=== PATIENT | male | born 1930 | race Caucasian/White ===

== ENCOUNTER 2018-12-13 19:44 | Inpatient (IN) | payer MEDICARE, OTHER ==
[~2018-12-13] VITALS: Ht 170.2 cm; Wt 61.4 kg
[2018-12-13 19:50] VITALS: Ht 170.2 cm; Wt 61.4 kg
--- NOTE | 2018-12-13 19:57 | ERD ---
ER Documentation Chief Complaint Chief Complaint BIB RA89 from [facility],SOB,mhxCHF,CVA w/ L side deficit,HTN HPI 88-year-old male history of hypertension, chronic ischemic heart disease, CHF, COPD, hypoxic respiratory failure, CVA with hemiparesis, encephalopathy, GERD and cholelithiasis presents to the ED via rescue ambulance from [facility] for evaluation of acute onset of shortness of breath this evening. No documented vomiting, change in mental status or fever. Patient is unable to provide any history due to cognitive impairment and clinical condition. Limited history is obtained from paramedics and transfer records. ROS Unobtainable except as per HPI due to the patient's cognitive impairment Medications Home Meds Reported Medications Tuberculin,Purif.prot.deriv. (Tubersol) 5 Tub Unit/0.1 Ml Vial, 5 TUB ID ONCE for ANNUAL PPD TEST, VIAL FOR 1 DAY 12/13/18 Lisinopril* (Zestril*) 5 Mg Tablet, 5 MG PO DAILY, #30 TAB HOLD FOR SBP<110 12/13/18 Acetaminophen* (Tylenol*) 325 Mg Tablet, 650 MG PO Q6H PRN for MILD PAIN LEVEL 1-3, TAB AND FOR FEVER>101.0F 12/13/18 Metoprolol Succinate* (Toprol XL*) 25 Mg Tab.sr.24h, 25 MG PO DAILY, #30 TAB HOLD FOR SBP<110 OR HR<60 12/13/18 Sennosides* (Senokot*) 8.6 Mg Tablet, 1 TAB PO BID, TAB 12/13/18 Clopidogrel Bisulfate* (Clopidogrel Bisulfate*) 75 Mg Tablet, 75 MG PO DAILY, #3 0 TAB 12/13/18 Ondansetron Hcl* (Zofran*) 4 Mg Tab, 4 MG PO Q6H PRN for NAUSEA AND OR VOMITING, TAB 12/13/18 Multivit-Min/Iron Fum/Folic AC (Kgvjw-Sptfpjs-Hedaxadi Tablet) 1 Each Tablet, 1 EACH PO DAILY, TAB 12/13/18 Polyethylene Glycol* (Miralax*) 17 Gm Powd.pack, 17 GM PO NEEDED, #30 PACKET 12/13/18 Furosemide* (Furosemide*) 20 Mg Tablet, 20 MG PO BID, #30 TAB 12/13/18 Ipratropium-Albuterol (Ipratropium-Albuterol) 0.5-3 Mg/3 Ml Ampul.neb, 3 ML INHALATION Q4H PRN for NEEDED, #30 VIAL 12/13/18 Bisacodyl* (Bisacodyl*) 10 Mg Supp, 10 MG NM Q24H PRN for NEEDED, SUPP 12/13/18 Donepezil* (Aricept*) 5 Mg Tablet, 5 MG PO QHS, TAB 12/13/18 Albuterol Sulfate* (Albuterol Sulfate* Neb) 0.083%-3 Ml Neb, 2.5 MG NEB Q4H WHILE AWAKE PRN for WHEEZING AND SOB, #30 VIAL 12/13/18 Allergies Allergies: Coded Allergies: No Known Allergy (Unverified , 12/13/18) PMhx/Soc Reviewed in chart. As per HPI. Full code as per POLST Hx Neurological Disorder: Yes (CVA) Hx Respiratory Disorders: Yes (COPD) Hx Cardiac Disorders: Yes (CAD, CHF) Hx Psychiatric Problems: No Hx Miscellaneous Medical Probl: Yes (GERD, cholelithiasis) Hx Alcohol Use: No Hx Substance Use: No Hx Tobacco Use: No FmHx Unknown Physical Exam Vitals Vital Signs Date Temp Pulse Resp B/P (MAP) Pulse Ox O2 O2 Flow FiO2 Time Delivery Rate 12/13/18 117 24 120/83 96 Nasal 3.0 22:00 (95) Cannula 12/13/18 120 97 45 21:49 12/13/18 127 97 45 20:10 12/13/18 99.9 125 33 153/119 98 BIPAP 20:05 (130) 12/13/18 98.0 127 26 143/88 97 19:50 (106) Physical Exam Const: Severe respiratory distress Head: Atraumatic Eyes: Normal Conjunctiva ENT: Normal External Ears, Nose and Mouth. Neck: Nontender. No meningismus. Resp: Markedly diminished bilaterally right greater than left with expiratory wheezing. Cardio: Tachycardic. Regular rate and rhythm, no murmurs Abd: Soft, non tender, non distended. Normal bowel sounds Skin: No petechiae or rashes Back: No midline or flank tenderness Ext: Contracted. No cyanosis, or edema Neur: Left hemiparesis. Uncooperative. Exam is limited due to the constraints imposed by the patient's cognitive impairment and clinical decision Result Diagram: 12/16/18 0627 12/16/18 0627 Results 24 hrs Laboratory Tests Test 12/13/18 19:58 12/13/18 20:09 12/13/18 20:11 12/13/18 21:56 Blood Gas Blood arterial Specimen Source Arterial Blood 12/13/2018 9:25:52 Date Drawn PM Arterial Blood pH 7.336 (Temp corrected) Arterial Blood 36.2 mmhg pCO2 (Temp correct) Arterial Blood 126.2 mmHG pO2 (Temp corrected) Arterial Blood 18.9 mmol/L HCO3 Arterial Blood -6.2 mmol/L Base Excess Arterial Blood 98.2 mmHG Oxygen Saturation [place] Test ACCEPTAB Arterial Blood Right Radial Gas Puncture Site Arterial 0.1 % Blood Carboxyhemo globin Arterial Blood 0.3 % Methemoglobin Blood Gas A-a O2 153.5 mmHg Differential Oxyhemoglobin 97.8 % Percent Blood Gas 37.0 C Temperature Blood Gas 16.0 Respiration Rate Blood Gas Actual 26 Respiration Rate Blood Gas MASK - BIPAP Modality FiO2 45.0 % Blood Gas 10 Pressure Support Blood Gas 15/5 IPAP/EPAP Ratio Blood Gas UP Notified Whom Blood Gas 12/13/2018 9:40:43 Notified Time PM POC Venous 2.6 mmol/L 2.6 mmol/L Lactate White Blood Count 7.1 10^3/ul Red Blood Count 4.70 10^6/ul Hemoglobin 13.4 g/dl Hematocrit 41.6 % Mean Corpuscular 88.5 fl Volume Mean Corpuscular 28.5 pg Hemoglobin Mean Corpuscular 32.2 g/dl Hemoglobin Concen t Red Cell 16.0 % Distribution Width Platelet Count 310 10^3/UL Mean Platelet 10.3 fl Volume Immature 0.300 % Granulocytes % Neutrophils % 45.2 % Lymphocytes % 44.2 % Monocytes % 6.5 % Eosinophils % 3.0 % Basophils % 0.8 % Nucleated Red 0.0 /100WBC Blood Cells % Immature 0.020 10^3/ul Granulocytes # Neutrophils # 3.2 10^3/ul Lymphocytes # 3.1 10^3/ul Monocytes # 0.5 10^3/ul Eosinophils # 0.2 10^3/ul Basophils # 0.1 10^3/ul Nucleated Red 0.0 10^3/ul Blood Cells # Prothrombin Time 14.5 Sec Prothrombin Time 1.1 Ratio INR International 1.12 Normalized Ratio Activated 38.6 Sec Partial Thrombopl ast Time Sodium Level 137 mmol/L Potassium Level 4.8 mmol/L Chloride Level 102 mmol/L Carbon Dioxide 21 mmol/L Level Anion Gap 14 Blood Urea 18 mg/dl Nitrogen Creatinine 0.85 mg/dl Est Glomerular mL/min Filtrat Rate mL/min Glucose Level 210 mg/dl Calcium Level 8.8 mg/dl Total Bilirubin 0.3 mg/dl Direct Bilirubin 0.00 mg/dl Indirect 0.3 mg/dl Bilirubin Aspartate Amino 37 IU/L Transf (AST/SGOT) Alanine 17 IU/L Aminotransferase (ALT/SGPT) Alkaline 99 IU/L Phosphatase Troponin I < 0.012 ng/ml Total Protein 8.2 g/dl Albumin 3.8 g/dl Globulin 4.40 g/dl Albumin/Globulin 0.86 Ratio Current Medications Medications Dose Sig/West Start Time Status Last (Trade) Ordered Route PRN Stop Time Admin Dose Reason Admin Albuterol 15 mg ONCE STAT 12/13/18 DC 12/13/18 (Proventil INH 19:58 12/13/18 20:44 0.5% (Neb)) 20:08 Ipratropium 1 mg ONCE STAT 12/13/18 DC 12/13/18 [place] INH 19:58 12/13/18 20:43 (Atrovent 20:08 0.02% (Neb)) 125 mg ONCE STAT 12/13/18 DC 12/13/18 Methylprednis IV 19:58 12/13/18 20:16 olone Sodium 20:08 Succinate (Solu-Medrol) Sodium 1,840 ml BOLUS OVER 2 12/13/18 DC 12/13/18 Chloride HOURS STAT 19:58 12/13/18 20:17 (NS) IV* 20:08 Vancomycin 250 ml @ ONCE STAT 12/13/18 DC 12/13/18 HCl 125 mls/hr IVPB 19:58 12/13/18 20:48 21:57 Cefepime HCl 50 ml @ ONCE STAT 12/13/18 DC 12/13/18 100 mls/hr IVPB 19:58 12/13/18 20:17 20:27 7 mg ONCE ONCE 12/13/18 DC 12/13/18 Levalbuterol HHN 22:30 12/13/18 23:00 (Xopenex 22:54 Neb) 30 mg Q8 IV 12/13/18 DC Methylprednis 22:30 12/13/18 olone Sodium 22:42 Succinate (Solu-Medrol) Procedures/MDM DOCUMENTS REVIEWED: ED nurse, SNF records and EMS report. EKG: Time: 2019. Sinus tachycardia. Ventricular rate 118. Normal NM int erval. Widened QRS with left bundle branch block. No acute ST elevation or depression. My Interpretation IMAGING: PROCEDURE: XR Chest. CLINICAL INDICATION: Dyspnea TECHNIQUE: Single frontal chest x-ray. COMPARISON: None. FINDINGS: Moderate to large right and mild left pleural effusions. No pneumothorax. Mildly enlarged cardiac silhouette. Aortic atherosclerotic calcification is noted. The osseous structures are remarkable for degenerative enthesopathy of the spine. IMPRESSION: 1. Moderate to large right and mild left pleural effusions. 2. Mildly enlarged cardiac silhouette. Aortic atherosclerosis. RPTAT: HDWR .Dwain Padgett MD, MD Date Time Electronically viewed and signed by .Dwain Padgett MD, MD on 12/13/2018 20:57 .R/ [employer] DECISION MAKIN-year-old male history of hypertension, chronic ischemic heart disease, CHF, COPD, hypoxic respiratory failure, CVA with left hemiparesis, encephalopathy, GERD and cholelithiasis presents to the ED via rescue ambulance from [facility] for evaluation of acute onset of shortness of breath this evening. CBC unremarkable for leukocytosis or anemia. Chemistry reveals no evidence of renal insufficiency, electrolyte abnormalities or hyperglycemia. EKG reveals left bundle branch block and tachycardia but no criteria for ischemia. No prior ECGs available for comparison at this time. Troponin is negative. No evidence of STEMI/NSTEMI or acute ischemia however a cardiac etiology is not ruled out. Chest x-ray sig nificant for cardiomegaly, large right and small left pleural effusions but no acute infiltrate. Patient presents with acute respiratory failure secondary to COPD exacerbation and bilateral pleural effusions improved significantly with noninvasive positive pressure ventilation nebulized beta agonists, and intravenous corticosteroids. Pleural effusion of uncertain etiology although infectious and neoplastic etiologies are considered; will require thoracentesis. Serial lactates greater than 2.0 mmol/L consistent with severe sepsis. Intravenous fluids and broad-spectrum antibiotics administered prior to cultures. Patient's infectious and pulmonary symptoms have not stabilized and the patient is at risk of rapid decompensation. The patient will be admitted to telemetry for pulmonary care, thoracentesis, careful hydration, antibiotic therapy, infectious source control, further evaluation and management. Severe Sepsis criteria: Infectious source: Pulmonary End organ damage indicated by: Lactate > 2.0 mmol/L Sepsis Management: Time of recognition of severe sepsis: 20:09 Within 1 hours of recognition: Blood cultures x 2 before broad-spectrum antibiotics: Yes 30 ml/kg NS bolus completed Initial lactate 2.6 Repeat lactate 2.6 Septic Shock Assessment: Any lactic acid > 4.0 No Persistent hypotension (SBP < 90 or 40 mmHg drop, MAP < 65) despite 30 mL/kg IV fluid bolus No No Persistent Hypotension Treatment: Comfort care no Central line not indicated Accepting Care Team Current data and ongoing care discussed. Time: 22:35, . Admitting Physician: Dr. Yousif Critical Care Time: 35 minutes Treatments/Evaluations: Close monitoring and treatment of unstable vital signs, cardiorespiratory, and neurologic status, while maintaining tight balance of fluid, respiratory, and cardiac interventions. This includes noninvasive positive pressure ventilation and the administration of emergency fluid management while maintaining close respiratory support as well as the provision of immediate and broad-spectrum antibiotic therapy, while performing a simultaneous assessment for possible sources in order to direct targeted therapy. This time includes discussing the case with the patient and the patient's family. This time also includes the consideration for invasive and chemical support to prevent cardiopulmonary collapse. This time does not include all procedures stated elsewhere in this record. This time also includes reviewing old records, labs and radiological studies. This time includes examining and re-examining the patient. Additionally, this time also includes arranging care with admitting and consulting physicians. Departure Diagnosis: Primary Impression: Acute dyspnea Additional Impressions: Acute respiratory failure Respiratory failure complication: unspecified whether with hypoxia or hypercapnia Qualified Codes: J96.00 - Acute respiratory failure, unspecified whether with hypoxia or hypercapnia Severe sepsis COPD with acute exacerbation Pleural effusion Condition: Serious HIEN HILL MD Dec 13, 2018 19:57
[2018-12-13] MEDS ORDERED: VANCOMYCIN 1 GM (PMX) 250 ML IVPB STA (19:58)
[2018-12-13] MEDS ORDERED: METHYLPREDNISOLONE 125 MG INJ IV STA (19:58)
[2018-12-13] MEDS ORDERED: ALBUTEROL 0.5% (NEB) 2.5 MG/0.5 ML AMP INH STA (19:58)
[2018-12-13] MEDS ORDERED: SODIUM CHLORIDE 0.9% 1L BAG IV* STA (19:58)
[2018-12-13] MEDS ORDERED: IPRATROPIUM (NEB) 0.5 MG/2.5 ML AMP INH STA (19:58)
[2018-12-13] MEDS ORDERED: CEFEPIME 2GM/50 ML (PMX) 50 ML IVPB STA (19:58)
--- NOTE | 2018-12-13 22:06 | HP ---
Date/Time of Note Date/Time of Note DATE: 12/13/18 TIME: 21:51 Assessment/Plan VTE Prophylaxis SCD applied (from Nsg): Yes Pharmacological prophylaxis: NA/contraindicated Pharm contraindication: low risk/ambulating Lines/Catheters IV Catheter Type (from Nrsg): Saline Lock Assessment/Plan Hospital Course This is a 88-year-old male being admitted to the telemetry floor for: #1 acute respiratory failure: Secondary to underlying pleural effusion/COPD/CHF exacerbation/pneumonia. Currently on BiPAP. Steroids, nebulizers scheduled. #2 suspected severe sepsis: Possible underlying pneumonia check urinalysis. Broad-spectrum antibiotics at the current time. Trend lactic acid levels. #3 COPD: Steroids, nebulizers, antibiotics #4 bilateral pleural effusions: Right greater than left. Will obtain a CT of the chest to further evaluate, depending on findings patient may need thoracentesis for diagnostic and therapeutic purposes. #5 acute on chronic encephalopathy/dementia: We will need to corroborate patient's history with family. Continue donepezil #6 diastolic versus systolic CHF: We will obtain an echocardiogram. Continue ALLI inhibitor hold beta-roxanne respiratory symptoms and possible concurrent COPD exacerbation #7 CVA: With hemiplegia. Will hold Plavix at the current time as patient may undergo thoracentesis. #8 coronary artery disease: We will resume home meds as indicated, currently holding Plavix #9 chronic debility: Continue supportive care #10 CODE STATUS: Full code as per the POLST form. Will need family consent for procedure in the AM if thoracentesis needed. #11 DVT GI prophylaxis: SCDs, no GI prophylaxis indicated Further treatment strategy will be implemented as per the clinical course. We will need to get in touch with next of kin in the a.m. regarding patient's condition. Will also need to obtain consent for possible thoracentesis. Result Diagram: 12/13/18201012/13/182010 Results 24hrs Laboratory Tests Test 12/13/18 19:58 12/13/18 20:09 12/13/18 20:11 Blood Gas Specimen Source Blood arterial Arterial Blood Date Drawn 12/13/2018 9:25:52 PM Arterial Blood pH 7.336 L (Temp corrected) Arterial Blood pCO2 36.2 (Temp correct) Arterial Blood pO2 126.2 H (Temp corrected) Arterial Blood HCO3 18.9 L Arterial Blood Base Excess -6.2 L Arterial Blood 98.2 Oxygen Saturation [place] Test ACCEPTAB Arterial Blood Gas Right Radial Puncture Site Arterial 0.1 Blood Carboxyhemoglobin Arterial Blood Methemoglobin 0.3 Blood Gas A-a O2 Differential 153.5 H Oxyhemoglobin Percent 97.8 Blood Gas Temperature 37.0 Blood Gas Respiration Rate 16.0 Blood Gas Actual 26 Respiration Rate Blood Gas Modality MASK - BIPAP FiO2 45.0 Blood Gas Pressure Support 10 Blood Gas IPAP/EPAP Ratio 15/5 Blood Gas Notified Whom UP Blood Gas Notified Time 12/13/2018 9:40:43 PM POC Venous Lactate 2.6 *H White Blood Count 7.1 Red Blood Count 4.70 Hemoglobin 13.4 L Hematocrit 41.6 L Mean Corpuscular Volume 88.5 Mean Corpuscular Hemoglobin 28.5 L Mean Corpuscular 32.2 Hemoglobin Concent Red Cell Distribution Width 16.0 H Platelet Count 310 Mean Platelet Volume 10.3 Immature Granulocytes % 0.300 Neutrophils % 45.2 Lymphocytes % 44.2 Monocytes % 6.5 Eosinophils % 3.0 Basophils % 0.8 Nucleated Red Blood Cells % 0.0 Immature Granulocytes # 0.020 Neutrophils # 3.2 Lymphocytes # 3.1 H Monocytes # 0.5 Eosinophils # 0.2 Basophils # 0.1 Nucleated Red Blood Cells # 0.0 Prothrombin Time 14.5 Prothrombin Time Ratio 1.1 INR International 1.12 Normalized Ratio Activated Partial Thromboplast 38.6 H Time Sodium Level 137 Potassium Level 4.8 Chloride Level 102 Carbon Dioxide Level 21 Anion Gap 14 H Blood Urea Nitrogen 18 Creatinine 0.85 Est Glomerular Filtrat Rate mL/min Glucose Level 210 Calcium Level 8.8 Total Bilirubin 0.3 Direct Bilirubin 0.00 Indirect Bilirubin 0.3 Aspartate Amino 37 Transf (AST/SGOT) Alanine 17 Aminotransferase (ALT/SGPT) Alkaline Phosphatase 99 Troponin I < 0.012 Total Protein 8.2 H Albumin 3.8 Globulin 4.40 H Albumin/Globulin Ratio 0.86 HPI/ROS Admit Date/Time Admit Date/Time Hx of Present Illness Chief complaint: Brought in from care facility for shortness of breath dyspnea times 2 days Patient is a poor historian information was provided by the EMS and the ED physician. This is a 88-year-old male who was sent in today from his chronic care living facility for shortness of breath and dyspnea times 2 days. As per the EMS patient's shortness of breath became worse today. H when he arrived in the emergency department he was noted to be in moderate to severe respiratory distress, he did have bilateral coarse crackles on exam. Patient was placed on BiPAP with an O2 saturation of 98%. He was reported to have accessory muscle use and tripoding and he was tachycardic. Patient's rectal temperature was 99.9. Upon my examination the patient at the bedside patient was awake and alert, he was not able to provide much history that he was able to follow simple commands. Mild wheezing and coarse breath sounds bilaterally greater on the right. POLST form in the chart did show the patient is a full code Allergies: NKDA Medications: See MAR ROS Subjective hx not possible: other (Unable to obtain given patient's clinical condition, ) PMH/Family/Social Past Medical History COPD Dysphagia Gallstones Non-STEMI Encephalopathy Hypertension CAD CHF CVA resulting in hemiplegia GERD Contracture Chronic debility requiring assistance Medications Current Medications Vancomycin HCl 250 ml @ 125 mls/hr ONCE STAT IVPB Last administered on 12/13/18at 20:48; Admin Dose 125 MLS/HR; Start 12/13/18 at 19:58; Stop 12/13/18 at 21:57 Coded Allergies: No Known Allergy (Unverified , 12/13/18) Past Surgical History Unknown unable to obtain given patient's clinical condition Family History Significant Family History: other (nknown unable to obtain given patient's clinical condition) Social History nknown unable to obtain given patient's clinical condition Smoking Status: Unknown if ever smoked Exam/Review of Systems Vital Signs Vitals Vital Signs Date Temp Pulse Resp B/P (MAP) Pulse Ox O2 O2 Flow FiO2 Time Delivery Rate 12/13/18 120 97 45 21:49 12/13/18 99.9 33 153/119 BIPAP 20:05 (130) Exam Exam General: Patient currently lying in bed in mild to moderate respiratory distress HEENT: Atraumatic, normocephalic. The pupils are equal, round and reactive. Extraocular motor are intact Neck: Supple with full range of motion. No rigidity or meningismus Chest: Nontender Lungs: Coarse breath sounds bilaterally, wheezing greater on the right than the left, currently on BiPAP Heart: Sinus tachycardia Abdomen: Soft , nontender, nondistended , bowel sounds are present. No guarding no rebound tenderness , No masses or organomegaly. No costovertebral temporal angle mass Extremities: Normal to inspection, no edema no cyanosis Neurologic: Alert and awake, does possibly appear to be some underlying dementia and language barrier, patient though is able to follow commands. Additional Comments PROCEDURE: XR Chest. CLINICAL INDICATION: Dyspnea TECHNIQUE: Single frontal chest x-ray. COMPARISON: None. FINDINGS: Moderate to large right and mild left pleural effusions. No pneumothorax. Mildly enlarged cardiac silhouette. Aortic atherosclerotic calcification is noted. The osseous structures are remarkable for degenerative enthesopathy of the spine. IMPRESSION: 1. Moderate to large right and mild left pleural effusions. 2. Mildly enlarged cardiac silhouette. Aortic atherosclerosis. RPTAT: HDWR .Dwain Padgett MD, MD Date Time Electronically viewed and signed by .Dwain Padgett MD, MD on 12/13/2018 20:57 .R/ CC: HIEN HILL MD [id number] JAKE BARRERA Dec 13, 2018 22:02
[2018-12-13] MEDS ORDERED: ALBU2.5V3 NEB (22:18)
[2018-12-13] MEDS ORDERED: DONE5TAB46 PO (22:19)
[2018-12-13] MEDS ORDERED: BISA10SU75 PR (22:19)
[2018-12-13] MEDS ORDERED: IPRA3AMP29 INHALATION (22:20)
[2018-12-13] MEDS ORDERED: FURO20TA3 PO (22:21)
[2018-12-13] MEDS ORDERED: POLY17PO6 PO (22:21)
[2018-12-13] MEDS ORDERED: MULT-876 PO (22:22)
[2018-12-13] MEDS ORDERED: ONDA4TAB13 PO (22:23)
[2018-12-13] MEDS ORDERED: CLOP75TA19 PO (22:24)
[2018-12-13] MEDS ORDERED: SENN-36 PO (22:25)
[2018-12-13] MEDS ORDERED: METO-335 PO (22:26)
[2018-12-13] MEDS ORDERED: ACET325T33 PO (22:29)
[2018-12-13] MEDS ORDERED: LISI-523 PO (22:30)
[2018-12-13] MEDS ORDERED: METHYLPREDNISOLONE 40 MG INJ IV SCH (22:30)
[2018-12-13] MEDS ORDERED: LEVALBUTEROL (NEB) 1.25 MG/0.5 ML AMP HHN ONE (22:30)
[2018-12-13] MEDS ORDERED: TUBE5VIA3 ID (22:33)
[2018-12-13] MEDS ORDERED: NACL 0.9% 3 ML SYG IV SCH (23:00)
[2018-12-13] MEDS ORDERED: ONDANSETRON 4 MG INJ IV PRN (23:00)
[2018-12-13] MEDS ORDERED: FUROSEMIDE 20 MG INJ IV ONE (23:00)
[2018-12-13] MEDS ORDERED: VANCOMYCIN IV PER PHARMACY XX SCH (23:00)
[2018-12-13] MEDS ORDERED: DOCUSATE SODIUM 100 MG CAP PO PRN (23:00)
[2018-12-13] MEDS ORDERED: ACETAMINOPHEN 325 MG TAB PO PRN (23:00)
[2018-12-13] MEDS: METHYLPREDNISOLONE 40 MG INJ IV SCH (23:56)
[2018-12-13] MEDS: PIPER-TAZO 3.375 GM IV (PMX) 100 ML IVPB SCH (23:56)
[2018-12-14] VITALS (11 sets, daily range): BP systolic 105–130; BP diastolic 56–80; PULSE 98–109; RESP 18–21
[2018-12-14] MEDS: LEVALBUTEROL (NEB) 1.25 MG/0.5 ML AMP HHN SCH ×6 (01:53→20:07)
[2018-12-14] MEDS: IPRATROPIUM (NEB) 0.5 MG/2.5 ML AMP HHN SCH ×6 (01:53→20:07)
[2018-12-14] MEDS: METHYLPREDNISOLONE 40 MG INJ IV SCH ×3 (05:33→22:22)
[2018-12-14] MEDS: PIPER-TAZO 3.375 GM IV (PMX) 100 ML IVPB SCH ×3 (05:33→17:36)
--- NOTE | 2018-12-14 08:42 | CONS ---
Assessment/Plan Assessment/Plan Assessment/Plan (Daily) Chest x-ray showing right pleural effusion, CT chest is showing partially loculated right pleural effusion which is moderate in size. Assessment recommendations; 1. Patient admitted with what appears to be complicated right pleural effusion possibly parapneumonic in etiology. 2. History of CVA and dementia. 3. History of CAD. Continue current supportive care. Patient will need to have a thoracentesis performed after family consents for the procedure. We will send fluid for Gram stain and culture. Continue current antibiotics. Consultation Date/Type/Reason Admit Date/Time Date of Consultation: Dec 14, 2018 Type of Consult Pulmonary Pulmonary consult requested for evaluation of right pleural effusion and hyp oxemia. Patient is an 88-year-old male who was sent over from [facility] with hypoxemia. Upon evaluation a chest x-ray was done which is showing a right pleural effusion. Patient subsequently had a CT scan of chest done which is showing partially loculated right pleural effusion. Patient has dementia and is a very poor historian. History was obtained from medical records. Patient however did not appear to be in any distress. Past medical history; next 1. 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 2. Dementia. 3. Possibly some element of CHF. 4. History of CAD. Medications; reviewed. Allergies; none. Social history, family history, occupational history is not available. Review of system; unable to be obtained. General exam; elderly male, awake and somewhat responsive. Currently no distress. Risk minimally interactive and Date/Time of Note DATE: 12/14/18 TIME: 08:38 Past Medical History Home Meds Reported Medications Tuberculin,Purif.prot.deriv. (Tubersol) 5 Tub Unit/0.1 Ml Vial, 5 TUB ID ONCE for ANNUAL PPD TEST, VIAL FOR 1 DAY 12/13/18 Lisinopril* (Zestril*) 5 Mg Tablet, 5 MG PO DAILY, #30 TAB HOLD FOR SBP<110 12/13/18 Acetaminophen* (Tylenol*) 325 Mg Tablet, 650 MG PO Q6H PRN for MILD PAIN LEVEL 1-3, TAB AND FOR FEVER>101.0F 12/13/18 Metoprolol Succinate* (Toprol XL*) 25 Mg Tab.sr.24h, 25 MG PO DAILY, #30 TAB HOLD FOR SBP<110 OR HR<60 12/13/18 Sennosides* (Senokot*) 8.6 Mg Tablet, 1 TAB PO BID, TAB 12/13/18 Clopidogrel Bisulfate* (Clopidogrel Bisulfate*) 75 Mg Tablet, 75 MG PO DAILY, #30 TAB 12/13/18 Ondansetron Hcl* (Zofran*) 4 Mg Tab, 4 MG PO Q6H PRN for NAUSEA AND OR VOMITING, TAB 12/13/18 Multivit-Min/Iron Fum/Folic AC (Ptfwj-Pidrdnr-Wrijwohg Tablet) 1 Each Tablet, 1 EACH PO DAILY, TAB 12/13/18 Polyethylene Glycol* (Miralax*) 17 Gm Powd.pack, 17 GM PO NEEDED, #30 PACKET 12/13/18 Furosemide* (Furosemide*) 20 Mg Tablet, 20 MG PO BID, #30 TAB 12/13/18 Ipratropium-Albuterol (Ipratropium-Albuterol) 0.5-3 Mg/3 Ml Ampul.neb, 3 ML INHALATION Q4H PRN for NEEDED, #30 VIAL 12/13/18 Bisacodyl* (Bisacodyl*) 10 Mg Supp, 10 MG FL Q24H PRN for NEEDED, SUPP 12/13/18 Donepezil* (Aricept*) 5 Mg Tablet, 5 MG PO QHS, TAB 12/13/18 Albuterol Sulfate* (Albuterol Sulfate* Neb) 0.083%-3 Ml Neb, 2.5 MG NEB Q4H WHILE AWAKE PRN for WHEEZING AND SOB, #30 VIAL 12/13/18 Medications Current Medications Ipratropium [place] (Atrovent 0.02% (Neb)) 0.5 mg Q4H RESP THERAPY [facility] Last administered on 12/14/18at 05:35; Admin Dose 0.5 MG; Start 12/14/18 at 01:00 Levalbuterol (Xopenex Neb) 1.25 mg Q4H RESP THERAPY HHN Last administered on 12/14/18at 05:34; Admin Dose 1.25 MG; Start 12/14/18 at 01:00 Methylprednisolone Sodium Succinate (Solu-Medrol) 30 mg Q8 IV Last administered on 12/14/18at 05:33; Admin Dose 30 MG; Start 12/14/18 at 00:00 IV Flush (NS 3 ml) 3 ml PER PROTOCOL IV ; Start 12/13/18 at 23:00 Ondansetron HCl (Zofran Inj) 4 mg Q6H PRN IV NAUSEA/VOMITING; Start 12/13/18 at 23:00 Acetaminophen (Tylenol Tab) 650 mg Q6H PRN PO .PAIN 1-3 OR TEMP; Start 12/13/18 at 23:00 Docusate Sodium (Colace) 100 mg Q12H PRN PO .CONSTIPATION; Start 12/13/18 at 23:00 Bisacodyl (Dulcolax) 5 mg DAILY PRN PO .CONSTIPATION; Start 12/13/18 at 23:00 Vancomycin HCl (Vanco Iv Per Pharmacy) VANCOMYCIN PER PHARMACY PER PROTOCOL XX ; Start 12/13/18 at 23:00 Piperacillin Sod/ Tazobactam Sod 100 ml @ 200 mls/hr Q6 IVPB Last administered on 12/14/18at 05:33; Admin Dose 200 MLS/HR; Start 12/14/18 at 00:00 Vancomycin HCl 250 ml @ 125 mls/hr Q24H IVPB ; Start 12/14/18 at 21:00 Donepezil HCl (Aricept) 5 mg QHS PO ; Start 12/14/18 at 21:00 Lisinopril (Zestril) 5 mg DAILY PO ; Start 12/14/18 at 09:00 Metoprolol Succinate (Toprol Xl) 25 mg DAILY PO ; Start 12/14/18 at 09:00 Furosemide (Lasix) 20 mg ONCE ONCE IV ; Start 12/14/18 at 09:00; Stop 12/14/18 at 09:01 Allergies: Coded Allergies: No Known Allergy (Unverified , 12/13/18) Social History Smoking Status: Unknown if ever smoked Exam/Review of Systems Exam Vitals Vital Signs Date Temp Pulse Resp B/P (MAP) Pulse Ox O2 O2 Flow FiO2 Time Delivery Rate 12/14/18 98 08:21 12/14/18 97.9 18 126/66 97 Nasal 3.0 07:31 (86) Cannula 12/13/18 45 21:49 Exam H EENT exam; supple neck, no JVD. No lymphadenopathy. Midline trachea. No thyromegaly. Patient is edentulous. Pupils are small bilaterally. Chest exam; diminished breath sounds right lower lobe. Rest of the lung glass are clear. S1-S2 audible, no murmurs. Regular rhythm. Abdomen exam; soft, scaphoid. No organomegaly. Bowel sounds audible. Extremity exam; no peripheral edema. Patient does have flexion contractures involving the right side. [employer] exam; patient is awake and follows very simple commands like mouth opening. Exhibiting right hemiplegia. Results Result Diagram: 12/13/18201012/13/182010 Results 24hrs Laboratory Tests Test 12/13/18 19:58 12/13/18 20:09 12/13/18 20:11 12/13/18 21:56 Blood Gas Specimen Blood arterial Source Arterial Blood 12/13/2018 9:25:52 Date Drawn PM Arterial Blood pH 7.336 L (Temp corrected) Arterial Blood 36.2 pCO2 (Temp correct) Arterial Blood pO2 126.2 H (Temp corrected) Arterial Blood 18.9 L HCO3 Arterial Blood -6.2 L Base Excess Arterial Blood 98.2 Oxygen Saturation [place] Test ACCEPTAB Arterial Blood Gas Right Radial Puncture Site Arterial 0.1 Blood Carboxyhemog lobin Arterial Blood 0.3 Methemoglobin Blood Gas A-a O2 153.5 H Differential Oxyhemoglobin 97.8 Percent Blood Gas 37.0 Temperature Blood Gas 16.0 Respiration Rate Blood Gas Actual 26 Respiration Rate Blood Gas Modality MASK - BIPAP FiO2 45.0 Blood Gas Pressure 10 Support Blood Gas 15/5 IPAP/EPAP Ratio Blood Gas Notified UP Whom Blood Gas Notified 12/13/2018 9:40:43 Time PM POC Venous Lactate 2.6 *H 2.6 *H White Blood Count 7.1 Red Blood Count 4.70 Hemoglobin 13.4 L Hematocrit 41.6 L Mean Corpuscular 88.5 Volume Mean Corpuscular 28.5 L Hemoglobin Mean Corpuscular 32.2 Hemoglobin Concent Red Cell 16.0 H Distribution Width Platelet Count 310 Mean Platelet 10.3 Volume Immature 0.300 Granulocytes % Neutrophils % 45.2 Lymphocytes % 44.2 Monocytes % 6.5 Eosinophils % 3.0 Basophils % 0.8 Nucleated Red 0.0 Blood Cells % Immature 0.020 Granulocytes # Neutrophils # 3.2 Lymphocytes # 3.1 H Monocytes # 0.5 Eosinophils # 0.2 Basophils # 0.1 Nucleated Red 0.0 Blood Cells # Prothrombin Time 14.5 Prothrombin Time 1.1 Ratio INR International 1.12 Normalized Ratio Activated 38.[address] Time Sodium Level 137 Potassium Level 4.8 Chloride Level 102 Carbon Dioxide 21 Level Anion Gap 14 H Blood Urea 18 Nitrogen Creatinine 0.85 Est Glomerular Filtrat Rate mL/min Glucose Level 210 Calcium Level 8.8 Total Bilirubin 0.3 Direct Bilirubin 0.00 Indirect Bilirubin 0.3 Aspartate Amino 37 Transf (AST/SGOT) Alanine 17 Aminotransferase ( ALT/SGPT) Alkaline 99 Phosphatase Troponin I < 0.012 Total Protein 8.2 H Albumin 3.8 Globulin 4.40 H Albumin/Globulin 0.86 Ratio Test 12/14/18 00:05 Lactic Acid Level 2.4 *H Medications Medication Current Medications Ipratropium [place] (Atrovent 0.02% (Neb)) 0.5 mg Q4H RESP THERAPY HHN Last administered on 12/14/18at 05:35; Admin Dose 0.5 MG; Start 12/14/18 at 01:00 Levalbuterol (Xopenex Neb) 1.25 mg Q4H RESP THERAPY HHN Last administered on 12/14/18at 05:34; Admin Dose 1.25 MG; Start 12/14/18 at 01:00 Methylprednisolone Sodium Succinate (Solu-Medrol) 30 mg Q8 IV Last administered on 12/14/18at 05:33; Admin Dose 30 MG; Start 12/14/18 at 00:00 IV Flush (NS 3 ml) 3 ml PER PROTOCOL IV ; Start 12/13/18 at 23:00 Ondansetron HCl (Zofran Inj) 4 mg Q6H PRN IV NAUSEA/VOMITING; Start 12/13/18 at 23:00 Acetaminophen (Tylenol Tab) 650 mg Q6H PRN PO .PAIN 1-3 OR TEMP; Start 12/13/18 at 23:00 Docusate Sodium (Colace) 100 mg Q12H PRN PO .CONSTIPATION; Start 12/13/18 at 23:00 Bisacodyl (Dulcolax) 5 mg DAILY PRN PO .CONSTIPATION; Start 12/13/18 at 23:00 Vancomycin HCl (Vanco Iv Per Pharmacy) VANCOMYCIN PER PHARMACY PER PROTOCOL XX ; Start 12/13/18 at 23:00 Piperacillin Sod/ Tazobactam Sod 100 ml @ 200 mls/hr Q6 IVPB Last administered on 12/14/18at 05:33; Admin Dose 200 MLS/HR; Start 12/14/18 at 00:00 Vancomycin HCl 250 ml @ 125 mls/hr Q24H IVPB ; Start 12/14/18 at 21:00 Donepezil HCl (Aricept) 5 mg QHS PO ; Start 12/14/18 at 21:00 Lisinopril (Zestril) 5 mg DAILY PO ; Start 12/14/18 at 09:00 Metoprolol Succinate (Toprol Xl) 25 mg DAILY PO ; Start 12/14/18 at 09:00 Furosemide (Lasix) 20 mg ONCE ONCE IV ; Start 12/14/18 at 09:00; Stop 12/14/18 at 09:01 ROSA MORENO Dec 14, 2018 08:42
[2018-12-14] MEDS: LISINOPRIL 5 MG TAB PO SCH (09:00)
[2018-12-14] MEDS: METOPROLOL (XL) 25 MG TAB PO SCH (09:00)
[2018-12-14] MEDS ORDERED: FUROSEMIDE 20 MG INJ IV ONE (09:00)
[2018-12-14] MEDS ORDERED: LIDOCAINE 1% (MPF) 5 ML VIAL ONE (12:28)
--- NOTE | 2018-12-14 16:35 | PN ---
Date/Time of Note Date/Time of Note DATE: 12/14/18 TIME: 16:27 Assessment/Plan VTE Prophylaxis Risk score (from Ns)>0 risk: 3 SCD applied (from Ns): Yes Pharmacological prophylaxis: NA/contraindicated Pharm contraindication: low risk/ambulating Lines/Catheters IV Catheter Type (from Nrsg): Saline Lock Assessment/Plan Assessment/Plan 88 yo man admitted for acute respiratory failure, found to have pleural effusion #acute respiratory failure: - Required BiPAP on admission; now breathing comfortably on nasal cannula - Will continue to watch on tele - Pleural effusion: Did thoracentesis 12/14, pending fluid studies - COPD: Will treat with steroids and nebulizers. - Pneumonia: Ground glass opacities are likely edema, not pneumonia. But due to patient's age and risk of infection will treat with course for CAP. #Dementia - Patient has no signs of delerium - Continue donepezil. 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 - Continue ALLI inhibitor and beta-roxanne - Currently appears euvolemic, will hold off on diuresis. # CVA: - With hemiplegia. - Resume plavix after discharge # coronary artery disease: - Continue home meds # CODE STATUS: Full code as per the [facility] form. # DVT GI prophylaxis: SCDs, no GI prophylaxis indicated Result Diagram: 12/13/18201012/13/182010 Subjective 24 Hr Interval Summary Free Text/Dictation No acute overnight events. Patient went for thoracentesis today. Exam/Review of Systems Exam Vitals Vital Signs Date Temp Pulse Resp B/P (MAP) Pulse Ox O2 O2 Flow FiO2 Time Delivery Rate 12/14/18 101 16:15 12/14/18 97.4 20 107/58 92 Nasal 15:24 (74) Cannula 12/14/18 3.0 12:57 12/13/18 45 21:49 Exam General: Frail appearing elderly man lying in bed in no distress. HEENT: Atraumatic, normocephalic. The pupils are equal, round and reactive. Extraocular motor are intact Neck: Supple with full range of motion. No rigidity or meningismus Chest: Nontender Lungs: Breathing comfortably on nasal cannula. Heart: Sinus tachycardia Abdomen: Soft , nontender, nondistended , bowel sounds are present. Extremities: Normal to inspection, no edema no cyanosis Neurologic: Alert and awake, disoriented to year, month, day; location; and situation. Results Results 24hrs Laboratory Tests Test 12/13/18 19:58 12/13/18 20:09 12/13/18 20:11 12/13/18 21:56 Blood Gas Specimen Blood arterial Source Arterial Blood 12/13/2018 9:25:52 Date Drawn PM Arterial Blood pH 7.336 L (Temp corrected) Arterial Blood 36.2 pCO2 (Temp correct) Arterial Blood pO2 126.2 H (Temp corrected) Arterial Blood 18.9 L HCO3 Arterial Blood -6.2 L Base Excess Arterial Blood 98.2 Oxygen Saturation [place] Test ACCEPTAB Arterial Blood Gas Right Radial Puncture Site Arterial 0.1 Blood Carboxyhemog lobin Arterial Blood 0.3 Methemoglobin Blood Gas A-a O2 153.5 H Differential Oxyhemoglobin 97.8 Percent Blood Gas 37.0 Temperature Blood Gas 16.0 Respiration Rate Blood Gas Actual 26 Respiration Rate Blood Gas Modality MASK - BIPAP FiO2 45.0 Blood Gas Pressure 10 Support Blood Gas 15/5 IPAP/EPAP Ratio Blood Gas Notified UP Whom Blood Gas Notified 12/13/2018 9:40:43 Time PM POC Venous Lactate 2.6 *H 2.6 *H White Blood Count 7.1 Red Blood Count 4.70 Hemoglobin 13.4 L Hematocrit 41.6 L Mean Corpuscular 88.5 Volume Mean Corpuscular 28.5 L Hemoglobin Mean Corpuscular 32.2 Hemoglobin Concent Red Cell 16.0 H Distribution Width Platelet Count 310 Mean Platelet 10.3 Volume Immature 0.300 Granulocytes % Neutrophils % 45.2 Lymphocytes % 44.2 Monocytes % 6.5 Eosinophils % 3.0 Basophils % 0.8 Nucleated Red 0.0 Blood Cells % Immature 0.020 Granulocytes # Neutrophils # 3.2 Lymphocytes # 3.1 H Monocytes # 0.5 Eosinophils # 0.2 Basophils # 0.1 Nucleated Red 0.0 Blood Cells # Prothrombin Time 14.5 Prothrombin Time 1.1 Ratio INR International 1.12 Normalized Ratio Activated 38.[address] Time Sodium Level 137 Potassium Level 4.8 Chloride Level 102 Carbon Dioxide 21 Level Anion Gap 14 H Blood Urea 18 Nitrogen Creatinine 0.85 Est Glomerular Filtrat Rate mL/min Glucose Level 210 Calcium Level 8.8 Total Bilirubin 0.3 Direct Bilirubin 0.00 Indirect Bilirubin 0.3 Aspartate Amino 37 Transf (AST/SGOT) Alanine 17 Aminotransferase ( ALT/SGPT) Alkaline 99 Phosphatase Troponin I < 0.012 Total Protein 8.2 H Albumin 3.8 Globulin 4.40 H Albumin/Globulin 0.86 Ratio Test 12/14/18 00:05 12/14/18 07:07 Lactic Acid Level 2.4 *H Hemoglobin A1c 5.6 Magnesium Level 2.0 Thyroid 0.687 Stimulating Hormone (TSH) Medications Medication Current Medications Ipratropium [place] (Atrovent 0.02% (Neb)) 0.5 mg Q4H RESP THERAPY HHN Last administered on 12/14/18 12:56; Admin Dose 0.5 MG; Start 12/14/18 at 01:00 Levalbuterol (Xopenex Neb) 1.25 mg Q4H RESP THERAPY HHN Last administered on 12/14/18 12:56; Admin Dose 1.25 MG; Start 12/14/18 at 01:00 Methylprednisolone Sodium Succinate (Solu-Medrol) 30 mg Q8 IV Last administered on 12/14/18at 13:49; Admin Dose 30 MG; Start 12/14/18 at 00:00 IV Flush (NS 3 ml) 3 ml PER PROTOCOL IV ; Start 12/13/18 at 23:00 Ondansetron HCl (Zofran Inj) 4 mg Q6H PRN IV NAUSEA/VOMITING; Start 12/13/18 at 23:00 Acetaminophen (Tylenol Tab) 650 mg Q6H PRN PO .PAIN 1-3 OR TEMP; Start 12/13/18 at 23:00 Docusate Sodium (Colace) 100 mg Q12H PRN PO .CONSTIPATION; Start 12/13/18 at 23:00 Bisacodyl (Dulcolax) 5 mg DAILY PRN PO .CONSTIPATION; Start 12/13/18 at 23:00 Vancomycin HCl (Vanco Iv Per Pharmacy) VANCOMYCIN PER PHARMACY PER PROTOCOL XX ; Start 12/13/18 at 23:00 Piperacillin Sod/ Tazobactam Sod 100 ml @ 200 mls/hr Q6 IVPB Last administered on 12/14/18 13:49; Admin Dose 200 MLS/HR; Start 12/14/18 at 00:00 Vancomycin HCl 250 ml @ 125 mls/hr Q24H IVPB ; Start 12/14/18 at 21:00 Donepezil HCl (Aricept) 5 mg QHS PO ; Start 12/14/18 at 21:00 Lisinopril (Zestril) 5 mg DAILY PO ; Start 12/14/18 at 09:00 Metoprolol Succinate (Toprol Xl) 25 mg DAILY PO ; Start 12/14/18 at 09:00 OSMAR LANDON MD Dec 14, 2018 16:35
[2018-12-14] MEDS: DONEPEZIL 5 MG TAB PO SCH (22:22)
[2018-12-14] MEDS: VANCOMYCIN 1 GM 250 ML IVPB SCH (22:23)
[2018-12-15] VITALS (10 sets, daily range): BP systolic 100–126; BP diastolic 56–78; PULSE 94–112; RESP 17–19
[2018-12-15] MEDS: IPRATROPIUM (NEB) 0.5 MG/2.5 ML AMP HHN SCH ×6 (00:34→19:55)
[2018-12-15] MEDS: LEVALBUTEROL (NEB) 1.25 MG/0.5 ML AMP HHN SCH ×6 (00:34→19:56)
[2018-12-15] MEDS: PIPER-TAZO 3.375 GM IV (PMX) 100 ML IVPB SCH ×4 (00:36→17:22)
[2018-12-15] MEDS: METHYLPREDNISOLONE 40 MG INJ IV SCH (06:12)
[2018-12-15] MEDS: LISINOPRIL 5 MG TAB PO SCH (09:25)
[2018-12-15] MEDS: METOPROLOL (XL) 25 MG TAB PO SCH (09:26)
[2018-12-15] MEDS: BISACODYL (EC) 5 MG TAB PO PRN (09:26)
--- NOTE | 2018-12-15 11:13 | CONS ---
Consult Date/Type/Reason Admit Date/Time Dec 13, 2018 at 22:42 Initial Consult Date 12/14/18 Type of Consult Pulmonary Date/Time of Note DATE: 12/15/18 TIME: 11:10 Subjective s/p thoracentesis 1L right lung. Objective Vital Signs Date Temp Pulse Resp B/P (MAP) Pulse Ox O2 O2 Flow FiO2 Time Delivery Rate 12/15/18 96 2.0 09:10 12/15/18 100 16 Nasal 09:09 Cannula 12/15/18 97.5 104/62 07:29 (76) 12/13/18 45 21:49 Intake and Output 12/14/18 12/14/18 12/15/18 1414:59 22:59 06:59 IntakeIntake Total 500 ml 450 ml BalanceBalance 500 ml 450 ml Results/Medications Result Diagram: 12/15/18 0953 12/15/18 0953 Results 24 hrs Laboratory Tests Test 12/14/18 12:20 12/15/18 09:53 Body Fluid Type PLEURAL FLUID Body Fluid Volume 1025.0 Body Fluid Color ORANGE Body Fluid Appearance CLOUDY Body Fluid WBC 438 Body Fluid RBC (Auto) 3000 Body Fluid Polynuclear WBCs (%) 10.5 Body Fluid Mononuclear Cells % Auto 89.5 Body Fluid Total Protein 4.6 Body Fluid Lactate Dehydrogenase 342 White Blood Count 6.5 Red Blood Count 3.68 #L Hemoglobin 10.6 #L Hematocrit 31.7 #L Mean Corpuscular Volume 86.1 Mean Corpuscular Hemoglobin 28.8 L Mean Corpuscular Hemoglobin Concent 33.4 Red Cell Distribution Width 16.2 H Platelet Count 218 # Mean Platelet Volume 10.0 Immature Granulocytes % 0.500 H Neutrophils % 90.3 H Lymphocytes % 6.7 L Monocytes % 2.3 Eosinophils % 0.0 Basophils % 0.2 Nucleated Red Blood Cells % 0.0 Immature Granulocytes # 0.030 Neutrophils # 5.9 Lymphocytes # 0.4 L Monocytes # 0.2 L Eosinophils # 0.0 Basophils # 0.0 Nucleated Red Blood Cells # 0.0 Sodium Level 142 Potassium Level 4.1 Chloride Level 110 Carbon Dioxide Level 22 Anion Gap 10 Blood Urea Nitrogen 20 Creatinine 0.94 Est Glomerular Filtrat Rate mL/min Glucose Level 129 # Calcium Level 8.9 Phosphorus Level 3.0 Magnesium Level 2.2 Total Bilirubin 0.3 Direct Bilirubin 0.00 Indirect Bilirubin 0.3 Aspartate Amino Transf (AST/SGOT) 75 #H Alanine Aminotransferase (ALT/SGPT) 29 Alkaline Phosphatase 77 Lactate Dehydrogenase 546 Total Protein 7.0 # Albumin 3.3 Globulin 3.70 H Albumin/Globulin Ratio 0.89 Medications Current Medications Ipratropium [place] (Atrovent 0.02% (Neb)) 0.5 mg Q4H RESP THERAPY HHN Last administered on 12/15/18 09:05; Admin Dose 0.5 MG; Start 12/14/18 at 01:00 Levalbuterol (Xopenex Neb) 1.25 mg Q4H RESP THERAPY HHN Last administered on 12/15/18 09:05; Admin Dose 1.25 MG; Start 12/14/18 at 01:00 Methylprednisolone Sodium Succinate (Solu-Medrol) 30 mg Q8 IV Last administered on 12/15/18 06:12; Admin Dose 30 MG; Start 12/14/18 at 00:00 IV Flush (NS 3 ml) 3 ml PER PROTOCOL IV ; Start 12/13/18 at 23:00 Ondansetron HCl (Zofran Inj) 4 mg Q6H PRN IV NAUSEA/VOMITING; Start 12/13/18 at 23:00 Acetaminophen (Tylenol Tab) 650 mg Q6H PRN PO .PAIN 1-3 OR TEMP; Start 12/13/18 at 23:00 Docusate Sodium (Colace) 100 mg Q12H PRN PO .CONSTIPATION; Start 12/13/18 at 23:00 Bisacodyl (Dulcolax) 5 mg DAILY PRN PO .CONSTIPATION Last administered on 12/15/18at 09:26; Admin Dose 5 MG; Start 12/13/18 at 23:00 Vancomycin HCl (Vanco Iv Per Pharmacy) VANCOMYCIN PER PHARMACY PER PROTOCOL XX ; Start 12/13/18 at 23:00 Piperacillin Sod/ Tazobactam Sod 100 ml @ 200 mls/hr Q6 IVPB Last administered on 12/15/18at 06:12; Admin Dose 200 MLS/HR; Start 12/14/18 at 00:00 Vancomycin HCl 250 ml @ 125 mls/hr Q24H IVPB Last administered on 12/14/18at 22:23; Admin Dose 125 MLS/HR; Start 12/14/18 at 21:00 Donepezil HCl (Aricept) 5 mg QHS PO Last administered on 12/14/18at 22:22; Admin Dose 5 MG; Start 12/14/18 at 21:00 Lisinopril (Zestril) 5 mg DAILY PO Last administered on 12/15/18at 09:25; Admin Dose 5 MG; Start 12/14/18 at 09:00 Metoprolol Succinate (Toprol Xl) 25 mg DAILY PO Last administered on 12/15/18at 09:26; Admin Dose 25 MG; Start 12/14/18 at 09:00 Assessment/Plan Hospital Course (Demo Recall) Assessment 1. Right effusion, chf vs post infectious, ? malignancy. 2. s/p thoracentesis with pleural fluid studies 3. Hx dementia 4. Hx Cad Plan. Await pleural fluid studies Aspiration precautions. Consider transfer to med surg diuretics code status ? [facility] HOWARD [facility] Dec 15, 2018 11:13
[2018-12-15] MEDS: FUROSEMIDE 40 MG INJ IV SCH (11:59)
--- NOTE | 2018-12-15 15:08 | PN ---
Date/Time of Note Date/Time of Note DATE: 12/15/18 TIME: 15:06 Assessment/Plan VTE Prophylaxis Risk score (from Ns)>0 risk: 7 SCD applied (from Ns): Yes Pharmacological prophylaxis: NA/contraindicated Pharm contraindication: low risk/ambulating Lines/Catheters IV Catheter Type (from Nrsg): Saline Lock Urinary Cath still in place: No Assessment/Plan Assessment/Plan 88 yo man admitted for acute respiratory failure, found to have pleural effusion #acute respiratory failure: - Required BiPAP on admission; now breathing comfortably on nasal cannula - Will continue to watch on tele - IV antibiotics for CAP. - COPD: Will treat with steroids and nebulizers. #Pleural effusion - Thoracentesis 12/14 - Exudative by protein and LDH - Likely parapneumonic. #Dementia - Patient has no signs of delerium - Continue donepezil. 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 - Continue ALLI inhibitor and beta-roxanne - Currently appears euvolemic, will hold off on diuresis. # CVA: - With hemiplegia. - Resume plavix after discharge # coronary artery disease: - Continue home meds # CODE STATUS: Full code as per the [facility] form. # DVT GI prophylaxis: SCDs, no GI prophylaxis indicated Result Diagram: 12/15/18 0953 12/15/18 0953 Subjective 24 Hr Interval Summary Free Text/Dictation No acute overnight events. Patient still confused, disoriented this morning. Breathing comfortably on nasal cannula. Exam/Review of Systems Exam Vitals Vital Signs Date Temp Pulse Resp B/P (MAP) Pulse Ox O2 O2 Flow FiO2 Time Delivery Rate 12/15/18 105 20 96 Nasal 2.0 13:26 Cannula 12/15/18 97.7 120/74 11:21 (89) 12/13/18 45 21:49 Intake and Output 12/14/18 12/14/18 12/15/18 1515:00 23:00 07:00 IntakeIntake Total 500 ml 550 ml BalanceBalance 500 ml 550 ml Exam General: Frail appearing elderly man lying in bed in no distress. HEENT: Atraumatic, normocephalic. The pupils are equal, round and reactive. Extraocular motor are intact Neck: Supple with full range of motion. No rigidity or meningismus Chest: Nontender Lungs: Breathing comfortably on nasal cannula. Lungs clear to ausculation bilaterally. Heart: Regular rate and rhythm, no murmurs Abdomen: Soft , nontender, nondistended , bowel sounds are present. Extremities: Normal to inspection, no edema no cyanosis Neurologic: Alert and awake, disoriented to year, month, day; location; and situation. Results Results 24hrs Laboratory Tests Test 12/15/18 09:53 White Blood Count 6.5 Red Blood Count 3.68 #L Hemoglobin 10.6 #L Hematocrit 31.7 #L Mean Corpuscular Volume 86.1 Mean Corpuscular Hemoglobin 28.8 L Mean Corpuscular Hemoglobin Concent 33.4 Red Cell Distribution Width 16.2 H Platelet Count 218 # Mean Platelet Volume 10.0 Immature Granulocytes % 0.500 H Neutrophils % 90.3 H Lymphocytes % 6.7 L Monocytes % 2.3 Eosinophils % 0.0 Basophils % 0.2 Nucleated Red Blood Cells % 0.0 Immature Granulocytes # 0.030 Neutrophils # 5.9 Lymphocytes # 0.4 L Monocytes # 0.2 L Eosinophils # 0.0 Basophils # 0.0 Nucleated Red Blood Cells # 0.0 Sodium Level 142 Potassium Level 4.1 Chloride Level 110 Carbon Dioxide Level 22 Anion Gap 10 Blood Urea Nitrogen 20 Creatinine 0.94 Est Glomerular Filtrat Rate mL/min Glucose Level 129 # Calcium Level 8.9 Phosphorus Level 3.0 Magnesium Level 2.2 Total Bilirubin 0.3 Direct Bilirubin 0.00 Indirect Bilirubin 0.3 Aspartate Amino Transf (AST/SGOT) 75 #H Alanine Aminotransferase (ALT/SGPT) 29 Alkaline Phosphatase 77 Lactate Dehydrogenase 546 Total Protein 7.0 # Albumin 3.3 Globulin 3.70 H Albumin/Globulin Ratio 0.89 Medications Medication Current Medications Ipratropium [place] (Atrovent 0.02% (Neb)) 0.5 mg Q4H RESP THERAPY HHN Last administered on 12/15/18at 13:25; Admin Dose 0.5 MG; Start 12/14/18 at 01:00 Levalbuterol (Xopenex Neb) 1.25 mg Q4H RESP THERAPY HHN Last administered on 12/15/18at 13:25; Admin Dose 1.25 MG; Start 12/14/18 at 01:00 IV Flush (NS 3 ml) 3 ml PER PROTOCOL IV ; Start 12/13/18 at 23:00 Ondansetron HCl (Zofran Inj) 4 mg Q6H PRN IV NAUSEA/VOMITING; Start 12/13/18 at 23:00 Acetaminophen (Tylenol Tab) 650 mg Q6H PRN PO .PAIN 1-3 OR TEMP; Start 12/13/18 at 23:00 Docusate Sodium (Colace) 100 mg Q12H PRN PO .CONSTIPATION; Start 12/13/18 at 23:00 Bisacodyl (Dulcolax) 5 mg DAILY PRN PO .CONSTIPATION Last administered on 12/15/18 09:26; Admin Dose 5 MG; Start 12/13/18 at 23:00 Vancomycin HCl (Vanco Iv Per Pharmacy) VANCOMYCIN PER PHARMACY PER PROTOCOL XX ; Start 12/13/18 at 23:00 Piperacillin Sod/ Tazobactam Sod 100 ml @ 200 mls/hr Q6 IVPB Last administered on 12/15/18 11:58; Admin Dose 200 MLS/HR; Start 12/14/18 at 00:00 Vancomycin HCl 250 ml @ 125 mls/hr Q24H IVPB Last administered on 12/14/18 22:23; Admin Dose 125 MLS/HR; Start 12/14/18 at 21:00 Donepezil HCl (Aricept) 5 mg QHS PO Last administered on 12/14/18 22:22; Admin Dose 5 MG; Start 12/14/18 at 21:00 Lisinopril (Zestril) 5 mg DAILY PO Last administered on 12/15/18 09:25; Admin Dose 5 MG; Start 12/14/18 at 09:00 Metoprolol Succinate (Toprol Xl) 25 mg DAILY PO Last administered on 12/15/18 09:26; Admin Dose 25 MG; Start 12/14/18 at 09:00 Furosemide (Lasix) 40 mg DAILY IV Last administered on 12/15/18 11:59; Admin Dose 40 MG; Start 12/15/18 at 11:30 Methylprednisolone Sodium Succinate (Solu-Medrol) 30 mg DAILY IV ; Start 12/16/18 at 09:00 OSMAR LANDON MD Dec 15, 2018 15:08
[2018-12-15] MEDS: VANCOMYCIN 1 GM 250 ML IVPB SCH (20:24)
[2018-12-15] MEDS: DONEPEZIL 5 MG TAB PO SCH (20:24)
[2018-12-16] VITALS (9 sets, daily range): BP systolic 110–132; BP diastolic 69–77; PULSE 90–104; RESP 17–18
[2018-12-16] MEDS: IPRATROPIUM (NEB) 0.5 MG/2.5 ML AMP HHN SCH ×6 (00:11→20:21)
[2018-12-16] MEDS: LEVALBUTEROL (NEB) 1.25 MG/0.5 ML AMP HHN SCH ×6 (00:11→20:21)
[2018-12-16] MEDS: PIPER-TAZO 3.375 GM IV (PMX) 100 ML IVPB SCH ×4 (00:36→17:21)
[2018-12-16] MEDS: METHYLPREDNISOLONE 40 MG INJ IV SCH (09:29)
[2018-12-16] MEDS: FUROSEMIDE 40 MG INJ IV SCH (09:30)
[2018-12-16] MEDS: BISACODYL (EC) 5 MG TAB PO PRN (09:30)
[2018-12-16] MEDS: LISINOPRIL 5 MG TAB PO SCH (09:30)
[2018-12-16] MEDS: METOPROLOL (XL) 25 MG TAB PO SCH (09:31)
--- NOTE | 2018-12-16 11:01 | CONS ---
Consult Date/Type/Reason Admit Date/Time Dec 13, 2018 at 22:42 Initial Consult Date 12/14/18 Type of Consult Pulmonary Date/Time of Note DATE: 12/16/18 TIME: 10:59 Subjective Patient stable this morning no respiratory distress Objective Vital Signs Date Temp Pulse Resp B/P (MAP) Pulse Ox O2 O2 Flow FiO2 Time Delivery Rate 12/16/18 96 09:30 12/16/18 94 2.0 08:17 12/16/18 20 Nasal 08:15 Cannula 12/16/18 97.2 118/76 07:41 (90) 12/16/18 21 00:11 Intake and Output 12/15/18 12/15/18 12/16/18 1515:00 23:00 07:00 IntakeIntake Total 100 ml 650 ml 400 ml BalanceBalance 100 ml 650 ml 400 ml Exam GENERAL: Well-nourished well-developed gentleman comfortable at rest no acute distress VITAL SIGNS: per chart NECK: Supple. No JVD or lymphadenopathy. CARDIAC EXAM: S1, S2. No added sounds or murmurs. CHEST: Edema +1 diminished air entry bilaterally with rales and wheezes ABDOMEN: Soft, nontender. No guarding or rebound. EXTREMITIES: No cyanosis, clubbing edema +1 NEUROLOGIC: Generalized weakness. No focal deficits. Vent Setting Fraction of Inspired Oxygen pe: 21 Results/Medications Result Diagram: 12/16/1862612/16/18626 Results 24 hrs Laboratory Tests Test 12/16/18 06:27 White Blood Count 6.7 Red Blood Count 3.69 L Hemoglobin 10.5 L Hematocrit 32.2 L Mean Corpuscular Volume 87.3 Mean Corpuscular Hemoglobin 28.5 L Mean Corpuscular Hemoglobin Concent 32.6 Red Cell Distribution Width 16.6 H Platelet Count 218 Mean Platelet Volume 10.2 Immature Granulocytes % 0.300 Neutrophils % 74.6 Lymphocytes % 16.6 Monocytes % 8.4 Eosinophils % 0.0 Basophils % 0.1 Nucleated Red Blood Cells % 0.0 Immature Granulocytes # 0.020 Neutrophils # 5.0 Lymphocytes # 1.1 Monocytes # 0.6 Eosinophils # 0.0 Basophils # 0.0 Nucleated Red Blood Cells # 0.0 Sodium Level 144 Potassium Level 3.8 Chloride Level 109 Carbon Dioxide Level 26 Anion Gap 9 Blood Urea Nitrogen 26 H Creatinine 1.04 Est Glomerular Filtrat Rate mL/min Glucose Level 95 Calcium Level 9.0 Phosphorus Level 2.7 Magnesium Level 2.3 Medications Current Medications Ipratropium [place] (Atrovent 0.02% (Neb)) 0.5 mg Q4H RESP THERAPY HHN Last administered on 12/16/18 08:10; Admin Dose 0.5 MG; Start 12/14/18 at 01:00 Levalbuterol (Xopenex Neb) 1.25 mg Q4H RESP THERAPY HHN Last administered on 12/16/18 08:11; Admin Dose 1.25 MG; Start 12/14/18 at 01:00 IV Flush (NS 3 ml) 3 ml PER PROTOCOL IV ; Start 12/13/18 at 23:00 Ondansetron HCl (Zofran Inj) 4 mg Q6H PRN IV NAUSEA/VOMITING; Start 12/13/18 at 23:00 Acetaminophen (Tylenol Tab) 650 mg Q6H PRN PO .PAIN 1-3 OR TEMP; Start 12/13/18 at 23:00 Docusate Sodium (Colace) 100 mg Q12H PRN PO .CONSTIPATION Last administered on 12/16/18 09:30; Admin Dose 100 MG; Start 12/13/18 at 23:00 Bisacodyl (Dulcolax) 5 mg DAILY PRN PO .CONSTIPATION Last administered on 09:30; Admin Dose 5 MG; Start 12/13/18 at 23:00 Vancomycin HCl (Vanco Iv Per Pharmacy) VANCOMYCIN PER PHARMACY PER PROTOCOL XX ; Start 12/13/18 at 23:00 Piperacillin Sod/ Tazobactam Sod 100 ml @ 200 mls/hr Q6 IVPB Last administered on 12/16/18 05:51; Admin Dose 200 MLS/HR; Start 12/14/18 at 00:00 Vancomycin HCl 250 ml @ 125 mls/hr Q24H IVPB Last administered on 12/15/18 20:24; Admin Dose 125 MLS/HR; Start 12/14/18 at 21:00 Donepezil HCl (Aricept) 5 mg QHS PO Last administered on 12/15/18 20:24; Admin Dose 5 MG; Start 12/14/18 at 21:00 Lisinopril (Zestril) 5 mg DAILY PO Last administered on 12/16/18 09:30; Admin Dose 5 MG; Start 12/14/18 at 09:00 Metoprolol Succinate (Toprol Xl) 25 mg DAILY PO Last administered on 12/16/18 09:31; Admin Dose 25 MG; Start 12/14/18 at 09:00 Furosemide (Lasix) 40 mg DAILY IV Last administered on 12/16/18 09:30; Admin Dose 40 MG; Start 12/15/18 at 11:30 Methylprednisolone Sodium Succinate (Solu-Medrol) 30 mg DAILY IV Last administered on 12/16/18 09:29; Admin Dose 30 MG; Start 12/16/18 at 09:00 Assessment/Plan Hospital Course (Demo Recall) Assessment 1. Right effusion, chf vs post infectious, ? malignancy. 2. s/p thoracentesis with pleural fluid studies 3. Hx dementia 4. Hx Cad Plan. Await pleural fluid studies Aspiration precautions. Consider transfer to med surg, transfer to SNF ? diuretics code status ? ART HOWARD MD, [facility] Dec 16, 2018 11:01
--- NOTE | 2018-12-16 17:14 | PN ---
Date/Time of Note Date/Time of Note DATE: 12/16/18 TIME: 17:12 Assessment/Plan VTE Prophylaxis Risk score (from Ns)>0 risk: 8 SCD applied (from Ns): Yes Pharmacological prophylaxis: NA/contraindicated Pharm contraindication: low risk/ambulating Lines/Catheters [facility] Saline Lock Urinary Cath still in place: No Assessment/Plan Assessment/Plan 88 yo man admitted for acute respiratory failure, found to have pleural effusion #acute respiratory failure: - Required BiPAP on admission; now breathing comfortably on nasal cannula - IV antibiotics for CAP. - COPD: Will treat with steroids and nebulizers. - Will plan for 10 day course of IV vancomycin and zosyn for pneumonia with parapneumonic effusion. #Pleural effusion - Thoracentesis 12/14 - Exudative by protein and LDH - Likely parapneumonic. #Dementia - Patient has no signs of delerium - Continue donepezil. 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 # CVA: - With hemiplegia. - Resume plavix after discharge # coronary artery disease: - Continue home meds # CODE STATUS: Full code as per the [facility] form. # DVT GI prophylaxis: SCDs, no GI prophylaxis indicated Dispo: Medically stable for discharge to SNF. Will plan for 10 day course of IV vancomycin and levofloxacin for pneumonia with parapneumonic effusion. Result Diagram: 12/16/1862612/16/18626 Subjective 24 Hr Interval Summary Free Text/Dictation No acute overnight events. Patient resting comfortably. Exam/Review of Systems Exam Vitals Vital Signs Date Temp Pulse Resp B/P (MAP) Pulse Ox O2 O2 Flow FiO2 Time Delivery Rate 12/16/18 96 2.0 16:48 12/16/18 94 20 Nasal 16:46 Cannula 12/16/18 97.9 125/69 15:11 (87) 12/16/18 21 00:11 Intake and Output 12/15/18 12/15/18 12/16/18 1414:59 22:59 06:59 IntakeIntake Total 200 ml 650 ml 400 ml BalanceBalance 200 ml 650 ml 400 ml Exam General: Frail appearing elderly man lying in bed in no distress. HEENT: Atraumatic, normocephalic. The pupils are equal, round and reactive. Extraocular motor are intact Neck: Supple with full range of motion. No rigidity or meningismus Chest: Nontender Lungs: Breathing comfortably on nasal cannula. Lungs clear to ausculation bilaterally. Heart: Regular rate and rhythm, no murmurs Abdomen: Soft , nontender, nondistended , bowel sounds are present. Extremities: Normal to inspection, no edema no cyanosis Neurologic: Alert and awake, disoriented to year, month, day; location; and situation. Results Results 24hrs Laboratory Tests Test 12/16/18 06:27 White Blood Count 6.7 Red Blood Count 3.69 L Hemoglobin 10.5 L Hematocrit 32.2 L Mean Corpuscular Volume 87.3 Mean Corpuscular Hemoglobin 28.5 L Mean Corpuscular Hemoglobin Concent 32.6 Red Cell Distribution Width 16.6 H Platelet Count 218 Mean Platelet Volume 10.2 Immature Granulocytes % 0.300 Neutrophils % 74.6 Lymphocytes % 16.6 Monocytes % 8.4 Eosinophils % 0.0 Basophils % 0.1 Nucleated Red Blood Cells % 0.0 Immature Granulocytes # 0.020 Neutrophils # 5.0 Lymphocytes # 1.1 Monocytes # 0.6 Eosinophils # 0.0 Basophils # 0.0 Nucleated Red Blood Cells # 0.0 Sodium Level 144 Potassium Level 3.8 Chloride Level 109 Carbon Dioxide Level 26 Anion Gap 9 Blood Urea Nitrogen 26 H Creatinine 1.04 Est Glomerular Filtrat Rate mL/min Glucose Level 95 Calcium Level 9.0 Phosphorus Level 2.7 Magnesium Level 2.3 Medications Medication Current Medications Ipratropium [place] (Atrovent 0.02% (Neb)) 0.5 mg Q4H RESP THERAPY HHN Last administered on 12/16/18at 16:42; Admin Dose 0.5 MG; Start 12/14/18 at 01:00 Levalbuterol (Xopenex Neb) 1.25 mg Q4H RESP THERAPY HHN Last administered on 12/16/18at 16:42; Admin Dose 1.25 MG; Start 12/14/18 at 01:00 IV Flush (NS 3 ml) 3 ml PER PROTOCOL IV ; Start 12/13/18 at 23:00 Ondansetron HCl (Zofran Inj) 4 mg Q6H PRN IV NAUSEA/VOMITING; Start 12/13/18 at 23:00 Acetaminophen (Tylenol Tab) 650 mg Q6H PRN PO .PAIN 1-3 OR TEMP; Start 12/13/18 at 23:00 Docusate Sodium (Colace) 100 mg Q12H PRN PO .CONSTIPATION Last administered on 12/16/18 09:30; Admin Dose 100 MG; Start 12/13/18 at 23:00 Bisacodyl (Dulcolax) 5 mg DAILY PRN PO .CONSTIPATION Last administered on 12/16/18 09:30; Admin Dose 5 MG; Start 12/13/18 at 23:00 Vancomycin HCl (Vanco Iv Per Pharmacy) VANCOMYCIN PER PHARMACY PER PROTOCOL XX ; Start 12/13/18 at 23:00 Piperacillin Sod/ Tazobactam Sod 100 ml @ 200 mls/hr Q6 IVPB Last administered on 12/16/18 12:51; Admin Dose 200 MLS/HR; Start 12/14/18 at 00:00 Vancomycin HCl 250 ml @ 125 mls/hr Q24H IVPB Last administered on 12/15/18 20:24; Admin Dose 125 MLS/HR; Start 12/14/18 at 21:00 Donepezil HCl (Aricept) 5 mg QHS PO Last administered on 12/15/18 20:24; Admin Dose 5 MG; Start 12/14/18 at 21:00 Lisinopril (Zestril) 5 mg DAILY PO Last administered on 12/16/18 09:30; Admin Dose 5 MG; Start 12/14/18 at 09:00 Metoprolol Succinate (Toprol Xl) 25 mg DAILY PO Last administered on 12/16/18 09:31; Admin Dose 25 MG; Start 12/14/18 at 09:00 Furosemide (Lasix) 40 mg DAILY IV Last administered on 12/16/18 09:30; Admin Dose 40 MG; Start 12/15/18 at 11:30 Methylprednisolone Sodium Succinate (Solu-Medrol) 30 mg DAILY IV Last administered on 12/16/18 09:29; Admin Dose 30 MG; Start 12/16/18 at 09:00 Miscellaneous Information (*Rx Drug Level Order Reminder*) VANCO TROUGH @ 2,000 ONCE ONCE XX ; Start 12/16/18 at 20:00; Stop 12/16/18 at 20:01 OSMAR LANDON MD Dec 16, 2018 17:14
[2018-12-16] MEDS: VANCOMYCIN 1 GM 250 ML IVPB SCH (21:12)
[2018-12-16] MEDS: DONEPEZIL 5 MG TAB PO SCH (21:12)
[2018-12-17 00:11] VITALS: BP 125/71; PULSE 101; RESP 18
[2018-12-17] MEDS: PIPER-TAZO 3.375 GM IV (PMX) 100 ML IVPB SCH ×4 (00:54→17:49)
[2018-12-17] MEDS: LEVALBUTEROL (NEB) 1.25 MG/0.5 ML AMP HHN SCH ×6 (01:39→20:03)
[2018-12-17] MEDS: IPRATROPIUM (NEB) 0.5 MG/2.5 ML AMP HHN SCH ×6 (01:39→20:02)
[2018-12-17 04:07] VITALS: BP_SYST 113; BP_SYST 123; BP_DIAS 73; BP_DIAS 74; PULSE 58; PULSE 97; RESP 20
[2018-12-17 07:15] VITALS: BP 125/76; PULSE 99; RESP 18
[2018-12-17] MEDS: METHYLPREDNISOLONE 40 MG INJ IV SCH (09:01)
[2018-12-17] MEDS: FUROSEMIDE 40 MG INJ IV SCH (09:03)
[2018-12-17] MEDS: METOPROLOL (XL) 25 MG TAB PO SCH (09:06)
[2018-12-17] MEDS: LISINOPRIL 5 MG TAB PO SCH (09:06)
--- NOTE | 2018-12-17 11:35 | CONS ---
Consult Date/Type/Reason Admit Date/Time Dec 13, 2018 at 22:42 Initial Consult Date 12/14/18 Type of Consult Pulmonary Date/Time of Note DATE: 12/17/18 TIME: 11:33 Subjective Patient comfortable this morning. Objective Vital Signs Date Temp Pulse Resp B/P (MAP) Pulse Ox O2 O2 Flow FiO2 Time Delivery Rate 12/17/18 Nasal 2.0 10:58 Cannula 12/17/18 90 20 95 21 09:14 12/17/18 98.4 125/76 07:15 (92) Intake and Output 12/16/18 12/16/18 12/17/18 1414:59 22:59 06:59 IntakeIntake Total 100 ml 900 ml 400 ml BalanceBalance 100 ml 900 ml 400 ml Exam GENERAL: Well-nourished well-developed gentleman comfortable at rest no acute distress VITAL SIGNS: per chart NECK: Supple. No JVD or lymphadenopathy. CARDIAC EXAM: S1, S2. No added sounds or murmurs. CHEST: Edema +1 diminished air entry bilaterally with rales and wheezes ABDOMEN: Soft, nontender. No guarding or rebound. EXTREMITIES: No cyanosis, clubbing edema +1 NEUROLOGIC: Generalized weakness. No focal deficits. Vent Setting Fraction of Inspired Oxygen pe: 21 Results/Medications Result Diagram: 12/16/1862612/16/18626 Results 24 hrs Laboratory Tests Test 12/16/18 20:16 Vancomycin Level Trough 12.1 Medications Current Medications Ipratropium [place] (Atrovent 0.02% (Neb)) 0.5 mg Q4H RESP THERAPY HHN Last administered on 12/17/18at 09:13; Admin Dose 0.5 MG; Start 12/14/18 at 01:00 Levalbuterol (Xopenex Neb) 1.25 mg Q4H RESP THERAPY HHN Last administered on 12/17/18at 09:13; Admin Dose 1.25 MG; Start 12/14/18 at 01:00 IV Flush (NS 3 ml) 3 ml PER PROTOCOL IV ; Start 12/13/18 at 23:00 Ondansetron HCl (Zofran Inj) 4 mg Q6H PRN IV NAUSEA/VOMITING; Start 12/13/18 at 23:00 Acetaminophen (Tylenol Tab) 650 mg Q6H PRN PO .PAIN 1-3 OR TEMP; Start 12/13/18 at 23:00 Docusate Sodium (Colace) 100 mg Q12H PRN PO .CONSTIPATION Last administered on 12/16/18 09:30; Admin Dose 100 MG; Start 12/13/18 at 23:00 Bisacodyl (Dulcolax) 5 mg DAILY PRN PO .CONSTIPATION Last administered on 12/16/18 09:30; Admin Dose 5 MG; Start 12/13/18 at 23:00 Vancomycin HCl (Vanco Iv Per Pharmacy) VANCOMYCIN PER PHARMACY PER PROTOCOL XX ; Start 12/13/18 at 23:00 Piperacillin Sod/ Tazobactam Sod 100 ml @ 200 mls/hr Q6 IVPB Last administered on 12/17/18 11:16; Admin Dose 200 MLS/HR; Start 12/14/18 at 00:00 Vancomycin HCl 250 ml @ 125 mls/hr Q24H IVPB Last administered on 12/16/18 21:12; Admin Dose 125 MLS/HR; Start 12/14/18 at 21:00 Donepezil HCl (Aricept) 5 mg QHS PO Last administered on 12/16/18 21:12; Admin Dose 5 MG; Start 12/14/18 at 21:00 Lisinopril (Zestril) 5 mg DAILY PO Last administered on 12/17/18 09:06; Admin Dose 5 MG; Start 12/14/18 at 09:00 Metoprolol Succinate (Toprol Xl) 25 mg DAILY PO Last administered on 12/17/18 09:06; Admin Dose 25 MG; Start 12/14/18 at 09:00 Furosemide (Lasix) 40 mg DAILY IV Last administered on 12/17/18 09:03; Admin Dose 40 MG; Start 12/15/18 at 11:30 Methylprednisolone Sodium Succinate (Solu-Medrol) 30 mg DAILY IV Last administered on 12/17/18 09:01; Admin Dose 30 MG; Start 12/16/18 at 09:00 Assessment/Plan Hospital Course (Demo Recall) Assessment 1. Right effusion, chf vs post infectious, ? malignancy. 2. s/p thoracentesis with pleural fluid studies 3. Hx dementia 4. Hx Cad Plan. Await pleural fluid studies Aspiration precautions. Complete antibiotics per primary team Transfer to assisted facility [facility] HOWARD MD, [facility] Dec 17, 2018 11:35
[2018-12-17 14:25] VITALS: BP 121/78; PULSE 88; RESP 18
--- NOTE | 2018-12-17 16:03 | DS ---
Date/Time of Note Date/Time of Note DATE: 12/17/18 TIME: 15:58 Discharge Summary Admission/Discharge Info Admit Date/Time Dec 13, 2018 at 22:42 Discharge Date/Time Discharge Diagnosis #acute respiratory failure: - Required BiPAP on admission; now breathing comfortably on nasal cannula - IV antibiotics for CAP. #Pleural effusion- Thoracentesis 12/14 - Exudative by protein and LDH - Likely parapneumonic. #Dementia - Patient has no signs of delerium - Continue donepezil. 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 - Resume plavix after discharge # coronary artery disease: - Continue home meds Hx of Present Illness 88-year-old male who was sent in today from his chronic care living facility for shortness of breath and dyspnea times 2 days. As per the EMS patient's shortness of breath became worse today. H when he arrived in the emergency department he was noted to be in moderate to severe respiratory distress, he did have bilateral coarse crackles on exam. Patient was placed on BiPAP with an O2 saturation of 98%. He was reported to have accessory muscle use and tripoding and he was tachycardic. Patient's rectal temperature was 99.9. Upon my examination the patient at the bedside patient was awake and alert, he was not able to provide much history that he was able to follow simple commands. Mild wheezing and coarse breath sounds bilaterally greater on the right. POLST form in the chart did show the patient is a full code Hospital Course Patient was admitted and seen by pulmonary team during this hospital stay. Patient found with pneumonia along with a pleural effusion that turned out to be exudative after thoracentesis was performed and fluid analysis was performed. Patient also found with coagulase-negative staph bacteremia. Patient responded to IV antibiotics. Over the course of the hospital stay patient's pneumonia symptoms improved. Patient's vital signs are stable on the day of discharge. Final fluid study results are still pending including any signs of malignancy. After getting clearance from [employer] consultant teams patient will be discharged back to halfway facility today in improved condition. See printed medical reconciliation sheet for full list of discharge medications. Home Meds Reported Medications Tuberculin,Purif.prot.deriv. (Tubersol) 5 Tub Unit/0.1 Ml Vial, 5 TUB ID ONCE for ANNUAL PPD TEST, VIAL FOR 1 DAY 12/13/18 Lisinopril* (Zestril*) 5 Mg Tablet, 5 MG PO DAILY, #30 TAB HOLD FOR SBP<110 12/13/18 Acetaminophen* (Tylenol*) 325 Mg Tablet, 650 MG PO Q6H PRN for MILD PAIN LEVEL 1-3, TAB AND FOR FEVER>101.0F 12/13/18 Metoprolol Succinate* (Toprol XL*) 25 Mg Tab.sr.24h, 25 MG PO DAILY, #30 TAB HOLD FOR SBP<110 OR HR<60 12/13/18 Sennosides* (Senokot*) 8.6 Mg Tablet, 1 TAB PO BID, TAB 12/13/18 Clopidogrel Bisulfate* (Clopidogrel Bisulfate*) 75 Mg Tablet, 75 MG PO DAILY, #30 TAB 12/13/18 Ondansetron Hcl* (Zofran*) 4 Mg Tab, 4 MG PO Q6H PRN for NAUSEA AND OR VOMITING, TAB 12/13/18 Multivit-Min/Iron Fum/Folic AC (Hvzsh-Lmmppne-Dfnulpkc Tablet) 1 Each Tablet, 1 EACH PO DAILY, TAB 12/13/18 Polyethylene Glycol* (Miralax*) 17 Gm Powd.pack, 17 GM PO NEEDED, #30 PACKET 12/13/18 Furosemide* (Furosemide*) 20 Mg Tablet, 20 MG PO BID, #30 TAB 12/13/18 Ipratropium-Albuterol (Ipratropium-Albuterol) 0.5-3 Mg/3 Ml Ampul.neb, 3 ML INHALATION Q4H PRN for NEEDED, #30 VIAL 12/13/18 Bisacodyl* (Bisacodyl*) 10 Mg Supp, 10 MG MT Q24H PRN for NEEDED, SUPP 12/13/18 Donepezil* (Aricept*) 5 Mg Tablet, 5 MG PO QHS, TAB 12/13/18 Albuterol Sulfate* (Albuterol Sulfate* Neb) 0.083%-3 Ml Neb, 2.5 MG NEB Q4H WHILE AWAKE PRN for WHEEZING AND SOB, #30 VIAL 12/13/18 Primary Care Provider Not On Staff Doctor Pending Labs Laboratory Tests Test 12/16/18 20:16 Vancomycin Level Trough 12.1 ug/ml (10.0-20.0) MICHAEL MIRANDA S. Dec 17, 2018 16:03
== END 2018-12-17 18:36 | DRG 193 ==
LOC: E/R 19:44 → TEL 22:42 → CANRESERV 23:55 → TEL 12-14 10:19 → PP2 12-17 10:09
PROVIDERS: ADMIT Family Medicine; ATTEND Hospitalist
PROC: 4A033R1 Measurement of Arterial Saturation, Peripheral, Percutaneous Approach (ICD-10-PCS; 2018-12-13)
PROC: 5A09357 Assistance with Respiratory Ventilation, Less than 24 Consecutive Hours, Continuous Positive Airway Pressure (ICD-10-PCS; 2018-12-13)
PROC: 0W993ZZ Drainage of Right Pleural Cavity, Percutaneous Approach (ICD-10-PCS; principal; 2018-12-14)
DX: J18.9 Pneumonia, unspecified organism (principal); J96.01 Acute respiratory failure with hypoxia; I50.43 Acute on chronic combined systolic (congestive) and diastolic (congestive) heart failure; J90 Pleural effusion, not elsewhere classified; G93.40 Encephalopathy, unspecified; I69.354 Hemiplegia and hemiparesis following cerebral infarction affecting left non-dominant side; J44.0 Chronic obstructive pulmonary disease with (acute) lower respiratory infection; I11.0 Hypertensive heart disease with heart failure; I25.9 Chronic ischemic heart disease, unspecified; I25.10 Atherosclerotic heart disease of native coronary artery without angina pectoris; F03.90 Unspecified dementia, unspecified severity, without behavioral disturbance, psychotic disturbance, mood disturbance, and anxiety; I25.2 Old myocardial infarction
CPT/HCPCS: 36415; 36600; 71045; 71250; 76942; 80048; 80053; 80202; 82803; 83036; 83605; 83615; 83735; 84100; 84157; 84443; 84484; 85025; 85610; 85730; 87040; 87070; 87102; 87116; 89051; 92526; 92610; 93005; 94640; 94644; 94645; 94660; 94664; 96374; 96375; J0692; J1940; J2543; J2920; J2930; J3370; J7030